=== PATIENT | female | born 1955 | race Caucasian/White ===

== ENCOUNTER 2020-03-05 11:23 | Outpatient (REF) | payer OTHER, SELFPAY ==
--- NOTE | 2020-03-05 | XR_ITS ---
EXAMINATION: XR HIP, LEFT CLINICAL INFORMATION: Osteoarthritis COMPARISON: 03/01/2014 TECHNIQUE: Two views of the left hip. FINDINGS: No acute fracture or dislocation. Severe left hip arthrosis with [id number] contact, coxa plana, subchondral sclerosis, subchondral cystic change and bulky marginal osteophytes. Soft tissues unremarkable. XR/XR hip LT min 2V IMPRESSION: Severe left hip arthrosis with [id number]-wm-[id number] contact.
== END 2020-03-05 11:24 | disposition home or self-care (01) ==
LOC: HO.XRAY 11:23
PROVIDERS: PCP Internal Medicine; Visit Provider Internal Medicine
DX: M16.12 Unilateral primary osteoarthritis, left hip (principal)
CPT/HCPCS: 73502